=== PATIENT | male | born 1980 | race Caucasian/White ===

== ENCOUNTER 2020-07-09 19:49 | Emergency (ER) | payer OTHER ==
[~2020-07-09] VITALS: Ht 185.4 cm; Wt 127.0 kg
[2020-07-09] MEDS ORDERED: ERYTHROMYCIN E3.5 G2 OPHTHALMIC (21:15)
[2020-07-09 21:46] VITALS: BP 158/64
== END 2020-07-09 21:47 | disposition still patient (30) ==
LOC: M.ERS 19:49
DX: T15.02XA Foreign body in cornea, left eye, initial encounter (principal); F17.210 Nicotine dependence, cigarettes, uncomplicated; X58.XXXA Exposure to other specified factors, initial encounter; Y93.89 Activity, other specified; Y92.89 Other specified places as the place of occurrence of the external cause; Y99.8 Other external cause status